=== PATIENT | female | born 1965 | race African-American/Black ===

== ENCOUNTER 2016-09-05 12:20 | Emergency (ER) | payer BC ==
[2016-09-05] MEDS ORDERED: ONDANSETRON ODT 4 MG TAB ONE (15:42)
[2016-09-05] MEDS ORDERED: MORPHINE 4 MG/ML SYR ONE (15:43)
== END 2016-09-05 16:17 | disposition home or self-care (01) ==
LOC: ER 12:20
DX: S39.012A Strain of muscle, fascia and tendon of lower back, initial encounter (principal); M51.17 Intervertebral disc disorders with radiculopathy, lumbosacral region; M16.12 Unilateral primary osteoarthritis, left hip; M17.12 Unilateral primary osteoarthritis, left knee
CPT/HCPCS: 72100; 93971; 96372